=== PATIENT | female | born 1970 | race Caucasian/White ===

== ENCOUNTER 2020-07-15 09:55 | Emergency (ER) | payer SELFPAY ==
[~2020-07-15] VITALS: Ht 162.5 cm; Wt 90.7 kg
[2020-07-15 10:08] VITALS: BP 147/114
[2020-07-15] MEDS ORDERED: TETANUS,DIPTH,PERTUSS P/F (BOOSTRIX) 0.5 ML VIAL IM ONE (10:30)
--- NOTE | 2020-07-15 10:30 | ED Fall/Injury ---
General Chief Complaint: Laceration Stated Complaint: HEAD LAC Nursing Triage Note: PT AMB TO [facility] WITH COMPLAINT OF LACERATION TO BACK OF HEAD. WAS TAKING TRASH OUT AND SLIPPED ON STEP, STRIKING HEAD. DENIES LOC. Source: patient Exam Limitations: no limitations History of Present Illness Date Seen by Provider: July 15, 2020 Time Seen by Provider: 10:10 Initial Comments This is a healthy-appearing 49-year-old female presents to the ER with complaints of cut on the back of her head. States she was taking out the trash when she went to step on her stairs and slipped striking her head on the ground. She denies loss of consciousness, headache, or neck pain. States bleeding was controlled with direct pressure. Denies any other injury sustained during fall. Has no complaints of pain at this time. States she would just like to have her head checked out to see if she needs stitches. No recent illness. No fever, chills, cough, shortness of breath, chest pain, abdominal pain. Allergies and Home Medications Allergies Coded Allergies: sulfamethoxazole (Verified Allergy, Unknown, 07/15/20) trimethoprim (Verified Allergy, Unknown, 07/15/20) Patient Home Medication List Home Medication List Reviewed: Yes Review of Systems Review of Systems Constitutional: no symptoms reported Eyes: No Symptoms Reported Ears, Nose, Mouth, Throat: no symptoms reported Respiratory: no symptoms reported Cardiovascular: no symptoms reported Gastrointestinal: no symptoms reported Genitourinary: no symptoms reported Musculoskeletal: no symptoms reported Skin: see HPI Psychiatric/Neurological: No Symptoms Reported Past Ahmqqay-Qkwexw-Hwasqh Hx Patient Social History Alcohol Use: Denies Use Smoking Status: Current Everyday Smoker Recent Infectious Disease Expo: No Recent Hopitalizations: No Immunizations Up To Date Tetanus Booster (TDap): More than 5yrs PED Vaccines UTD: Yes Seasonal Allergies Seasonal Allergies: No Past Medical History Surgeries: Yes (oribtal socket) Respiratory: No Cardiac: No Neurological: No Genitourinary: No Gastrointestinal: No Musculoskeletal: No Endocrine: No HEENT: No Cancer: No Psychosocial: Yes Physical Exam Vital Signs Vital Signs - First Documented 07/15/20 10:08 Temp 35.5 Pulse 93 Resp 20 B/P (MAP) 147/114 (125) Pulse Ox 100 O2 Delivery Room Air Capillary Refill : Less Than 3 Seconds Height, Weight, BMI Height: '" Weight: lbs. oz. kg; 34.00 BMI Method: General Appearance: WD/WN, no apparent distress HEENT: PERRL/EOMI, normal ENT inspection, TMs normal, pharynx normal Neck: non-tender, full range of motion, supple, normal inspection Cardiovascular: regular rate, rhythm, no murmur Respiratory: lungs clear, normal breath sounds, no respiratory distress Gastrointestinal: normal bowel sounds, non tender, soft Back: normal inspection, no vertebral tenderness Extremities: normal range of motion, non-tender, normal inspection Neurologic/Psychiatric: no motor/sensory deficits, alert, normal mood/affect, oriented x 3, other (no gross neurological deficits ) Skin: normal color, warm/dry Posterior head has approximately 1 cm superficial laceration. Minimal blood oozing from site. No additional injuries appreciated. She does have mild swelling/tenderness at location of laceration. Diablo Coma Score Best Eye Response: (4) Open Spontaneously Best Verbal Response: (5) Oriented Best Motor Response: (6) Obeys Commands Christin Total: 15 Progress/Results/Core Measures Results/Orders My Orders Orders - TIFFANIE WREN APRN Dipht,Pertuss(Acell),Tet Adult (Boostrix (07/15/20 10:30) Acetaminophen Tablet (Tylenol Tablet) (07/15/20 10:45) Vital Signs/I&O 07/15/20 10:08 Temp 35.5 Pulse 93 Resp 20 B/P (MAP) 147/114 (125) Pulse Ox 100 O2 Delivery Room Air Blood Pressure Mean: 125 Progress Progress Note : Progress Note Patient examined and in no acute distress. She currently has no complaints of pain at this time. Area was cleansed with chlorhexidine and saline wash. While cleansing she reported increasing pain/burning with direct manipulation. No foreign bodies identified on exam. Laceration is not deep enough to require raquel so opted to glue at this time. She is agreeable with this. Additionally, states that she does not know when her last tetanus was so we will update this today as well. Offered Tylenol and ice pack prior to discharge and she accepted. Tolerated procedure well. Reviewed warning signs to look out for such as increased persistent headache, repeated vomiting, difficulty arousing from sleep, and discussed that she can always return if any of these symptoms develop. Verbalized understanding. Departure Impression Primary Impression: Fall Additional Impression: Laceration Disposition: HOME, SELF-CARE Condition: Improved Departure-Patient Inst. Decision time for Depature: 10:26 Referrals: NO,LOCAL PHYSICIAN (PCP/Family) Primary Care Physician Patient Instructions: Laceration Repair With Glue (DC), Diphtheria and Tetanus Toxoids Add. Discharge Instructions: Plan: 1. Do not scratch, rub, or pick at the adhesive. 2. Do not put tape directly over the adhesive. 3. You can shower with a skin adhesive in place, but do not soak the area in water. Do not go swimming. Be sure to gently dry the area after it gets wet. 4. Monitor for signs of infection: redness, fever, purulent drainage. Follow up with your doctor or return if you develop these symptoms. 5. Use ice 20 minutes at a time 4x a day as needed for swelling/pain. 6. Return to ER for any new or concerning symptoms. All discharge instructions reviewed with patient and/or family. Voiced understanding. TIFFANIE WREN PRESSING MACHINE OPERATOR July 15, 2020 10:29
[2020-07-15] MEDS ORDERED: ACETAMINOPHEN 500 MG TAB (TYLENOL) PO ONE (10:45)
== END 2020-07-15 10:53 | disposition home or self-care (01) ==
LOC: ER 09:57
DX: S01.01XA Laceration without foreign body of scalp, initial encounter (principal); F17.200 Nicotine dependence, unspecified, uncomplicated; Z23 Encounter for immunization; W10.9XXA Fall (on) (from) unspecified stairs and steps, initial encounter
CPT/HCPCS: 12011; 90715

== ENCOUNTER 2021-02-25 20:10 | Emergency (ER) | payer SELFPAY ==
[~2021-02-25] VITALS: Ht 162.6 cm; Wt 86.2 kg
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
[2021-02-25 21:17] LABS: BILIRUBIN,URINE NEGATIVE (NEGATIVE); CLARITY,URINE CLEAR; COLOR,URINE YELLOW; GLUCOSE, URINE (UA) NEGATIVE (NEGATIVE); KETONES,URINE NEGATIVE (NEGATIVE); LEUKOCYTE ESTERASE ,URINE NEGATIVE (NEGATIVE); NITRITE,URINE NEGATIVE (NEGATIVE); PROTEIN,URINE NEGATIVE (NEGATIVE)
[2021-02-25 21:20] LABS: AMPHETAMINE SCREEN, URINE POSITIVE (NEGATIVE); BARBITURATE SCREEN URINE NEGATIVE (NEGATIVE); BENZODIAZEPINES SCREEN URINE NEGATIVE (NEGATIVE); CANNABINOID SCREEN, URINE NEGATIVE (NEGATIVE); COCAINE SCREEN URINE NEGATIVE (NEGATIVE); METHADONE STAT NEGATIVE (NEGATIVE); METHAMPHETAMINE SCREEN URINE S POSITIVE (NEGATIVE); OPIATE SCREEN URINE NEGATIVE (NEGATIVE); OXYCODONE STAT NEGATIVE (NEGATIVE); PROPOXYPHENE STAT NEGATIVE (NEGATIVE); TRICYCLIC ANTIDEPRESSANTS SCRE NEGATIVE (NEGATIVE)
--- NOTE | 2021-02-25 21:22 | Diagnostic Imaging Report ---
Procedure: CT lumbar spine without contrast. Technique: Multiple contiguous axial images were obtained through the lumbar spine without the use of intravenous contrast. Sagittal and coronal reformations were then performed. Auto Exposure Controls were utilized during the CT exam to meet ALARA standards for radiation dose reduction. Date: February 25, 2021. Indication: 50-year-old female, back pain. Comparison: None. Findings: There is grade 1 anterolisthesis of L5 on S1 relating to facet arthropathy. The anterolisthesis measures 4 mm. There is no identified pars interarticularis defect. There are severe bilateral facet degenerative changes present at L5-S1. There is mild disc height loss at L5-S1. CT is limited for assessment of disc pathology as well as additional nonbony causes of pathology in the spinal canal. The additional lumbar disc heights are well preserved. The sacroiliac joints are unremarkable in appearance. There is no identified acute fracture of the lumbar spine. The additional facet articulations are unremarkable in appearance. There does appear to be a diffuse disc bulge at L5-S1 with probable mild or moderate narrowing of the bilateral lateral recesses. There is no CT apparent high-grade foraminal stenosis or spinal stenosis. Impression: 1. Grade 1 anterolisthesis of L5 on S1 relating to severe facet arthropathy at L5-S1. 2. There does appear to be a diffuse disc bulge at L5-S1 with suspected mild or moderate bilateral lateral recess narrowing and no CT apparent foraminal or spinal stenosis. 3. No identified acute fracture or compression deformity of the lumbar spine. Dictated by: Dictated on workstation # [id number]
[2021-02-25 21:25] LABS: BACTERIA,URINE NEGATIVE /HPF
[2021-02-25] MEDS ORDERED: KETOROLAC 60 MG/2 ML VIAL IM STA (21:31)
[2021-02-25] MEDS ORDERED: ORPHENADRINE 60 MG/2 ML (NORFLEX) AMP (ED ONLY) IM STA (21:31)
[2021-02-25] MEDS ORDERED: METH4TAB PO (21:32)
[2021-02-25] MEDS ORDERED: CYCL10TA25 PO (21:32)
[2021-02-25] MEDS ORDERED: KETOROLAC 60 MG/2 ML VIAL ONE (21:38)
[2021-02-25] MEDS ORDERED: ORPHENADRINE 60 MG/2 ML (NORFLEX) AMP (ED ONLY) ONE (21:38)
[2021-02-25 21:48] VITALS: BP 131/97
== END 2021-02-25 21:48 | disposition home or self-care (01) ==
LOC: EDUNIT# 20:10 → ER 20:14
DX: M54.42 Lumbago with sciatica, left side (principal); F19.90 Other psychoactive substance use, unspecified, uncomplicated; E66.9 Obesity, unspecified; F17.210 Nicotine dependence, cigarettes, uncomplicated; Z68.32 Body mass index [BMI] 32.0-32.9, adult
CPT/HCPCS: 72131; 80306; 81000; 96372

== ENCOUNTER 2022-08-08 12:18 | Emergency (ER) | payer MEDICAID ==
[~2022-08-08] VITALS: Ht 168 cm; Wt 91.0 kg
[~2022-08-08 12:18] MED LIST: CYCL10TA25 PO; METH4TAB PO
[2022-08-08] MEDS ORDERED: ONDANSETRON 4 MG/2 ML (SDV) Z0FRAN IVP STA (12:28)
[2022-08-08] MEDS ORDERED: NS IV 1000 ML 1,000 ML IV SCH (12:30)
--- NOTE | 2022-08-08 12:38 | ED Abdominal Pain ---
General Chief Complaint: Abdominal/GI Problems Stated Complaint: SEVERE AB PAIN Nursing Triage Note: PT TO [facility] WITH CC OF UPPER MID ABD PAIN SINCE 010, FREQUENT URINATION, VOMITING. HX OF DIVERTICULITIS, ATE NUTS BEFORE BED (JAY VELARDE) History of Present Illness Date Seen by Provider: Aug 08, 2022 Time Seen by Provider: 12:20 Initial Comments 51 year old female presents for severe abdominal pain that started with N/V at 1 am today. Denies previous abdominal surgeries other than , times 2. No chronic history of abdominal problems, she states she may have a history of diverticulitis, no GERD. She ate pistachios last evening before going to bed. She denies any symptoms yesterday. She has vomited multiple times with the last episode approximately 10 AM today. She has tried to drink fluids and eat small amounts of food with vomiting each time. No previous screening colonoscopy. She is from [place] and does not have a local provider. Only medication is estradiol. She is afebrile. EMS reports the house she was staying at had multiple calls recently and many have overdosed requiring narcan. Patient denies alcohol or illicit drug use. She does take Vyvannse occasional for ADD. Multiple healing scratches to bilat arms. Patient reports she has been helping her friend put fence up for her dog and it scratched her. She denies cutting or self harm. Timing/Duration: 12 Hours Severity/Quality: Severe Location: Epigastric Activities at Onset: None Associated Symptoms: No Back Pain, No Chest Pain, No Diaphoresis, No Fever/Chills, No Heartburn; Nausea/Vomiting; No Swelling/Mass in Abdomen, No Weakness (JAY VELARDE) Allergies and Home Medications Allergies Coded Allergies: sulfamethoxazole (Verified Allergy, Unknown, 07/15/20) trimethoprim (Verified Allergy, Unknown, 07/15/20) Patient Home Medication List Home Medication List Reviewed: Yes (JAY VELARDE) Cyclobenzaprine HCl (Cyclobenzaprine HCl) 10 Mg Tablet, 10 MG PO Q8H PRN for SPASMS Prescribed by: SENG JACKSON on 02/25/212131 Methylprednisolone (Medrol) 4 Mg Tab.ds.pk, 4 MG PO UD Prescribed by: SENG JACKSON on 02/25/212131 Ondansetron (Ondansetron Odt) 4 Mg Tab.rapdis, 4 MG PO Q6H PRN for NAUSEA/VOMITING Prescribed by: JAY VELARDE on 08/08/22 143 Tramadol HCl (Tramadol HCl) 50 Mg Tablet, 50 MG PO Q6H PRN for PAIN Prescribed by: JAY VELARDE on 08/08/22 1432 Review of Systems Review of Systems Constitutional: no symptoms reported, see HPI Gastrointestinal: See HPI, Abdominal Pain; Denies Constipated, Denies Diarrhea; Nausea; Denies Poor Appetite, Denies Poor Fluid Intake, Denies Rectal Bleeding Genitourinary: No Symptoms Reported, See HPI (JAY VELARDE) All Other Systems Reviewed Negative Unless Noted: Yes (JAY VELARDE) Past Dfnpuad-Qlplwi-Ohxzak Hx Patient Social History Tobacco Use?: Yes Tobacco type used: Cigarettes Smoking Status: Current Someday Smoker Substance use?: No Alcohol Use?: No (JAY VELARDE) Immunizations Up To Date Tetanus Booster (TDap): More than 5yrs PED Vaccines UTD: Yes (JAY VELARDE) Seasonal Allergies Seasonal Allergies: No (JAY VELARDE) Past Medical History Surgery/Hospitalization HX: X 2ORBITAL FX REPAIR Surgeries: Yes (oribtal socket) Respiratory: No Cardiac: No 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 oz. kg; 32.00 BMI Method: General Appearance: WD/WN, mild distress HEENT: PERRL/EOMI, normal ENT inspection, TMs normal, pharynx normal Neck: non-tender, full range of motion, supple, normal inspection Respiratory: chest non-tender, lungs clear, normal breath sounds, no respiratory distress Cardiovascular: normal peripheral pulses, regular rate, rhythm Gastrointestinal: normal bowel sounds, soft; No distended, No rebound; tenderness; No mass Extremities: normal range of motion, non-tender, normal inspection, no pedal edema, no calf tenderness, normal capillary refill Back: normal inspection, no CVA tenderness, no vertebral tenderness Neurologic/Psychiatric: no motor/sensory deficits, alert, normal mood/affect, oriented x 3 Skin: normal color, warm/dry Lymphatic: no adenopathy (PRACHI[facility]) Progress/Results/Core Measures Results/Orders Lab Results Laboratory Tests Test 08/08/22 12:36 08/08/22 12:49 Range/Units Urine Color YELLOW Urine Clarity CLEAR Urine pH 8.0 5-9 Urine Specific [place] 1.015 L 1.016-1.022 Urine Protein NEGATIVE NEGATIVE Urine Glucose (UA) NEGATIVE NEGATIVE Urine Ketones NEGATIVE NEGATIVE Urine Nitrite NEGATIVE NEGATIVE Urine Bilirubin NEGATIVE NEGATIVE Urine Urobilinogen 0.2 < = 1.0 MG/DL Urine Leukocyte Esterase NEGATIVE NEGATIVE Urine RBC (Auto) NEGATIVE NEGATIVE Urine RBC RARE /HPF Urine WBC NONE /HPF Urine Squamous Epithelial Cells 5-10 /HPF Urine Crystals NONE /LPF Urine Bacteria NEGATIVE /HPF Urine Casts NONE /LPF Urine Mucus NEGATIVE /LPF Urine Culture Indicated NO Urine Opiates Screen NEGATIVE NEGATIVE Urine Oxycodone Screen NEGATIVE NEGATIVE Urine Methadone Screen NEGATIVE NEGATIVE Urine Propoxyphene Screen NEGATIVE NEGATIVE Urine Barbiturates Screen NEGATIVE NEGATIVE Ur Tricyclic Antidepressants Screen NEGATIVE NEGATIVE Urine Phencyclidine Screen NEGATIVE NEGATIVE Urine Amphetamines Screen POSITIVE H NEGATIVE Urine Methamphetamines Screen POSITIVE H NEGATIVE Urine Benzodiazepines Screen NEGATIVE NEGATIVE Urine Cocaine Screen NEGATIVE NEGATIVE Urine Cannabinoids Screen NEGATIVE NEGATIVE White Blood Count 11.4 H 4.3-11.0 10^3/uL Red Blood Count 4.99 3.80-5.11 10^6/uL Hemoglobin 14.8 11.5-16.0 g/dL Hematocrit 44 35-52 % Mean Corpuscular Volume 88 80-99 fL Mean Corpuscular Hemoglobin 30 25-34 pg Mean Corpuscular Hemoglobin Concent 34 32-36 g/dL Red Cell Distribution Width 13.0 10.0-14.5 % Platelet Count 228 130-400 10^3/uL Mean Platelet Volume 11.1 9.0-12.2 fL Immature Granulocyte % (Auto) 0 % Neutrophils (%) (Auto) 78 H 42-75 % Lymphocytes (%) (Auto) 15 12-44 % Monocytes (%) (Auto) 5 0-12 % Eosinophils (%) (Auto) 1 0-10 % Basophils (%) (Auto) 0 0-10 % Neutrophils # (Auto) 8.9 H 1.8-7.8 10^3/uL Lymphocytes # (Auto) 1.7 1.0-4.0 10^3/uL Monocytes # (Auto) 0.6 0.0-1.0 10^3/uL Eosinophils # (Auto) 0.1 0.0-0.3 10^3/uL Basophils # (Auto) 0.0 0.0-0.1 10^3/uL Immature Granulocyte # (Auto) 0.1 0.0-0.1 10^3/uL Sodium Level 137 135-145 MMOL/L Potassium Level 3.6 3.6-5.0 MMOL/L Chloride Level 99 98-107 MMOL/L Carbon Dioxide Level 28 21-32 MMOL/L Anion Gap 10 5-14 MMOL/L Blood Urea Nitrogen 7 7-18 MG/DL Creatinine 0.71 0.60-1.30 MG/DL Estimat Glomerular Filtration Rate 104 BUN/Creatinine Ratio 10 Glucose Level 103 70-105 MG/DL Calcium Level 9.7 8.5-10.1 MG/DL Corrected Calcium 9.3 8.5-10.1 MG/DL Total Bilirubin 0.8 0.1-1.0 MG/DL Aspartate Amino Transf (AST/SGOT) 15 5-34 U/L Alanine Aminotransferase (ALT/SGPT) 21 0-55 U/L Alkaline Phosphatase 90 40-136 U/L C-Reactive Protein High Sensitivity 0.41 0.00-0.50 MG/DL Total Protein 7.8 6.4-8.2 GM/DL Albumin 4.5 3.2-4.5 GM/DL Amylase Level 34 25-125 U/L Lipase 17 8-78 U/L Serum Alcohol < 10 <10 MG/DL (REI CHAIREZ MD) Vital Signs/I&O 08/08/22 08/08/22 12:21 14:47 Temp 35.8 37.1 Pulse 74 101 Resp 22 17 B/P (MAP) 164/110 (128) 149/86 Pulse Ox 98 O2 Delivery Room Air Room Air (REI CHAIREZ MD) Blood Pressure Mean: 128 Progress Progress Note : Time: 12:20 Progress Note Patient assessed, explained we will do labs and probably CT. We will start an IV and give normal saline 1 L, Zofran 8 mg IV. Patient agreeable with this plan. 1300 RN unable to access IV on first attempt. Patient refuses to allow a second attempt. Explained to patient we need lab work to assess her complaints and provide medications. Agreeable for lab to come draw blood but does not want IV. Will give Zofran p.o. And fentanyl IM. 1400 WBC 11.4, will obtain CT. Understands it will be limited, since she does not have IV access for contrast. 1445 CT results and exam reviewed with Dr. Santos. Feels the patient will need a cholecystectomy but it does not need to be done emergently. He would prefer she be off methamphetamines for 3 to 5 days prior to surgery. Patient adamantly denies using methamphetamines explained that both her amphetamine and methamphetamine is positive, she reports only using Vyvanse for ADD. Patient has had no vomiting and reports nausea has improved since the Zofran. Continues to have abdominal pain but does report it is improved. Discharge instructions and return precautions reviewed with the patient. All questions answered. (JAY VELARDE) Departure Impression Primary Impression: Abdominal pain Qualified Codes: R10.13 - Epigastric pain Additional Impressions: Cholecystitis Methamphetamine abuse Disposition: 01 HOME, SELF-CARE Condition: Stable Departure-Patient Inst. Decision time for Depature: 14:15 (JAY VELARDE) Referrals: [facility],LOCAL PHYSICIAN (PCP) Primary Care Physician Patient Instructions: Gallstones (DC), Severe Abdominal Pain, Adult (DC) Add. Discharge Instructions: You will need to have your gallbladder removed, but you need to stop using Meth and be off it 3-[address] Santos's office for appt on and he will schedule your gallblader surgery. Clear liquid diet for the next 24 hours, then bland, low fat diet. Avoid spicy or greasy food. Take pain and nausea medication as prescribed. Return to the emergency department for new, urgent healthcare problems. All discharge instructions reviewed with patient and/or family. Voiced understanding. Scripts Tramadol HCl (Tramadol HCl) 50 Mg Tablet 50 MG PO Q6H PRN for PAIN, #20 TAB 0 Refills Prov: JAY VELARDE 08/08/22 Ondansetron (Ondansetron Odt) 4 Mg Tab.rapdis 4 MG PO Q6H PRN for NAUSEA/VOMITING, #15 TAB 0 Refills Prov: JAY VELARDE 08/08/22 ATTENDING PHYSICIAN NOTE: I was physically present as attending physician in the emergency department during the care of this patient, but I was not directly involved in the decision making or delivery of care for this patient. (REI CHAIREZ MD) JAY VELARDE Aug 08, 2022 12:38 REI CHAIREZ MD Aug 09, 2022 10:04
[2022-08-08 12:50] LABS: BILIRUBIN,URINE NEGATIVE (NEGATIVE); CLARITY,URINE CLEAR; COLOR,URINE YELLOW; GLUCOSE, URINE (UA) NEGATIVE (NEGATIVE); KETONES,URINE NEGATIVE (NEGATIVE); LEUKOCYTE ESTERASE ,URINE NEGATIVE (NEGATIVE); NITRITE,URINE NEGATIVE (NEGATIVE); PROTEIN,URINE NEGATIVE (NEGATIVE)
[2022-08-08] MEDS ORDERED: ONDANSETRON 4 MG (ZOFRAN) ORAL DISSOLVE TAB SL STA (12:53)
[2022-08-08 12:55] LABS: BASOPHILS % (AUTO) 0 % (0-10); EOSINOPHILS # (AUTO) 0.1 10^3/uL (0.0-0.3); EOSINOPHILS % (AUTO) 1 % (0-10); HEMATOCRIT 44 % (35-52); HEMOGLOBIN 14.8 g/dL (11.5-16.0); LYMPHOCYTES # (AUTO) 1.7 10^3/uL (1.0-4.0); LYMPHOCYTES % (AUTO) 15 % (12-44); MEAN CORPUSCULAR HEMOGLOBIN 30 pg (25-34); MEAN CORPUSCULAR HGB CONC 34 g/dL (32-36); MEAN CORPUSCULAR VOLUME 88 fL (80-99); MEAN PLATELET VOLUME 11.1 fL (9.0-12.2); MONOCYTES # (AUTO) 0.6 10^3/uL (0.0-1.0); MONOCYTES % (AUTO) 5 % (0-12); NEUTROPHILS # (AUTO) 8.9 10^3/uL (1.8-7.8); NEUTROPHILS % (AUTO) 78 % (42-75); PLATELET COUNT 228 10^3/uL (130-400); WHITE BLOOD COUNT 11.4 10^3/uL (4.3-11.0)
[2022-08-08 12:56] LABS: BACTERIA,URINE NEGATIVE /HPF; RBC,URINE RARE /HPF
[2022-08-08 12:58] LABS: AMPHETAMINE SCREEN, URINE POSITIVE (NEGATIVE); BARBITURATE SCREEN URINE NEGATIVE (NEGATIVE); BENZODIAZEPINES SCREEN URINE NEGATIVE (NEGATIVE); CANNABINOID SCREEN, URINE NEGATIVE (NEGATIVE); COCAINE SCREEN URINE NEGATIVE (NEGATIVE); METHADONE STAT NEGATIVE (NEGATIVE); OPIATE SCREEN URINE NEGATIVE (NEGATIVE); OXYCODONE STAT NEGATIVE (NEGATIVE); PROPOXYPHENE STAT NEGATIVE (NEGATIVE); TRICYCLIC ANTIDEPRESSANTS SCRE NEGATIVE (NEGATIVE)
[2022-08-08 13:05] LABS: ALBUMIN 4.5 GM/DL (3.2-4.5); CHLORIDE 99 MMOL/L (98-107); POTASSIUM 3.6 MMOL/L (3.6-5.0); SODIUM 137 MMOL/L (135-145)
[2022-08-08 13:06] LABS: AMYLASE 34 U/L (25-125); CALCIUM 9.7 MG/DL (8.5-10.1)
[2022-08-08 13:08] LABS: GLUCOSE 103 MG/DL (70-105); TOTAL PROTEIN 7.8 GM/DL (6.4-8.2)
[2022-08-08 13:09] LABS: BILIRUBIN,TOTAL 0.8 MG/DL (0.1-1.0); CARBON DIOXIDE 28 MMOL/L (21-32)
[2022-08-08 13:11] LABS: ALKALINE PHOSPHATASE 90 U/L (40-136); CREATININE SERUM 0.71 MG/DL (0.60-1.30); GFR ESTIMATED 104
[2022-08-08 13:12] LABS: BUN/CREATININE RATIO 10
[2022-08-08 13:14] LABS: ALANINE AMINOTRANSFERASE 21 U/L (0-55)
[2022-08-08 13:15] LABS: LIPASE 17 U/L (8-78)
[2022-08-08] MEDS ORDERED: fentaNYL INJ 100 MCG/2 ML AMP IM STA (13:24)
--- NOTE | 2022-08-08 14:13 | Diagnostic Imaging Report ---
PROCEDURE: CT abdomen and pelvis without contrast. TECHNIQUE: Multiple contiguous axial images were obtained through the abdomen and pelvis without the use of intravenous contrast. Auto Exposure Controls were utilized during the CT exam to meet ALARA standards for radiation dose reduction. INDICATION: Upper abdominal pain and vomiting. COMPARISON: No prior studies are available for comparison. The lung bases are clear. No focal liver mass is identified. Gallbladder does appear to be moderately distended. There is a large stone in the gallbladder. There does appear to be some questionable gallbladder wall thickening, as well. Pancreas and spleen are unremarkable apart from multiple granulomas within the spleen. No adrenal mass is identified. No renal calculi or hydronephrosis identified. Aorta is nonaneurysmal. Small and large bowel loops are normal caliber. Appendix is unremarkable. There is diverticulosis of the descending and sigmoid colon but no evidence of acute diverticulitis. The uterus and bladder are unremarkable. IMPRESSION: Mild/moderate gallbladder distention with cholelithiasis and questionable gallbladder wall thickening. Cholecystitis cannot be entirely excluded and gallbladder ultrasound may be useful for further evaluation. No other significant abnormality in the abdomen or pelvis is detected apart from uncomplicated diverticulosis. Dictated by: Dictated on workstation # [id number]
[2022-08-08] MEDS ORDERED: TRM50T PO (14:31)
[2022-08-08] MEDS ORDERED: ONDA4TAB11 PO (14:31)
[2022-08-08] MEDS ORDERED: TETANUS,DIPTH,PERTUSS P/F (BOOSTRIX) 0.5 ML VIAL IM ONE (14:45)
[2022-08-08 14:47] VITALS: BP 149/86
== END 2022-08-08 14:47 | disposition home or self-care (01) ==
LOC: EDUNIT# 12:18 → ER 12:20
DX: K81.9 Cholecystitis, unspecified (principal); F15.10 Other stimulant abuse, uncomplicated; F17.210 Nicotine dependence, cigarettes, uncomplicated; Z28.310 Unvaccinated for COVID-19
CPT/HCPCS: 74176; 80053; 80306; 81000; 82150; 83690; 84703; 85025; 86141; 99283; G0480; 36415; 80320; 90715